=== PATIENT | female | born 1995 | race Caucasian/White ===

== ENCOUNTER 2018-02-05 03:14 | Emergency (ER) | payer OTHER ==
[~2018-02-05] VITALS: Ht 157.5 cm; Wt 79.4 kg
[2018-02-05 03:17] VITALS: BP 123/77
--- NOTE | 2018-02-05 03:18 | NUR ---
TO BED # 8 AMBULATORY, REPORT GIVEN TO YARY MARKS
--- NOTE | 2018-02-05 03:20 | NUR ---
PATIENT PRESENTS TO ED WITH RASHES THROUGHOUT BODY. PATIENT DENIES ANY NEW MEDICATIONS, DETERGENTS, FOOD AT THIS TIME. PATIENT DENIES ANY HIKING OR OUTSIDE ACTIVITIES AT THIS TIME. PATIENT STATES SHE IS POST December. PATIENT DENIES PAIN AT THIS TIME. PATIENT NOT IN DISTRESS AT THIS TIME. ER MD MADE AWARE OF PATIENT STATUS. WILL CONTINUE TO MONITOR.
--- NOTE | 2018-02-05 03:29 | NUR ---
Dr. Sarabia evaluating patient at bedside.
--- NOTE | 2018-02-05 03:42 | NUR ---
Patient discharged with v/s stable. Written and verbal after care instructions given and explained. Patient alert, oriented and verbalized understanding of instructions. Ambulatory with steady gait. All questions addressed prior to discharge. ID band removed. Patient advised to follow up with PMD. Rx of BENADRYL, PREDNISONE given. Patient educated on indication of medication including possible reaction and side effects. Opportunity to ask questions provided and answered.
[2018-02-05 03:43] VITALS: BP 123/77
== END 2018-02-05 03:42 | disposition home or self-care (01) ==
LOC: MED 03:14
DX: R21 Rash and other nonspecific skin eruption (principal); Z88.0 Allergy status to penicillin
CPT/HCPCS: 99283

== ENCOUNTER 2018-10-19 21:23 | Emergency (ER) | payer OTHER ==
[~2018-10-19] VITALS: Ht 157.5 cm; Wt 79.4 kg
[2018-10-19 21:27] VITALS: BP 110/56
--- NOTE | 2018-10-19 21:30 | NUR ---
TO LOBBY A/W BED, AMBULATORY
--- NOTE | 2018-10-19 22:25 | NUR ---
PT AMBULATED TO BED #4
--- NOTE | 2018-10-19 22:28 | NUR ---
PT CAME INTO ER WITH C/O WITH N/V/D AND COUGH X4 DAYS. PT STATED SHE HAS BEEN UNABLE TO TAKE MEDICATION DUE BEING ALLERGIC TO TYLENOL. PT HAS A RQASH ALL OVER BODY DUE TO ACCIDENTLY TAKING TYLENOL EITH THE COUGH MEDICATION. PT HAS SOME CONGESTION AND COPUGH IS PRESENT. PT IS A/OX4. ER MD MADE AWARE OF STATUS. SAFETY MEASURES ARE IMPLEMENTED AND BED RAILS UP X 1. PT PAIN LEVEL IS 6/10 AT THIS TIME.
--- NOTE | 2018-10-19 23:01 | NUR ---
X-Ray at bedside.
[2018-10-19] MEDS ORDERED: AZITHROMYCIN 250 MG TAB PO ONE (23:15)
--- NOTE | 2018-10-19 23:55 | NUR ---
Aminata faulkner in [facility] - 10/19/18 at [address] Warren evaluating patient at bedside.
[2018-10-20 00:10] VITALS: BP 110/56
--- NOTE | 2018-10-20 00:10 | NUR ---
Patient discharged with v/s stable. Written and verbal after care instructions given and explained. Patient alert, oriented and verbalized understanding of instructions. Ambulatory with steady gait. All questions addressed prior to discharge. ID band removed. Patient advised to follow up with PMD. Rx of PROMETHAZINE/DEXTROMETHORPHINE WAS given. Patient educated on indication of medication including possible reaction and side effects. Opportunity to ask questions provided and answered.
== END 2018-10-20 00:10 | disposition home or self-care (01) ==
LOC: MED 21:23
DX: J18.9 Pneumonia, unspecified organism (principal); Z88.0 Allergy status to penicillin
CPT/HCPCS: 71045; 99283; Q0092

== ENCOUNTER 2018-10-29 00:45 | Emergency (ER) | payer OTHER ==
[~2018-10-29] VITALS: Ht 157.5 cm; Wt 79.4 kg
[2018-10-29 00:56] VITALS: BP 105/64
--- NOTE | 2018-10-29 00:56 | NUR ---
TO BED # 06 AMBULATORY
--- NOTE | 2018-10-29 01:00 | NUR ---
BIB SELF C/O COUGH WITH RIB PAIN X 1 WEEK. DENIES FEVER, NVD. REPORTS THAT HER THROAT FEELS "SCRATCHY AND ITCHY".
--- NOTE | 2018-10-29 01:04 | NUR ---
Dr. Warren evaluating patient at bedside.
--- NOTE | 2018-10-29 01:20 | NUR ---
X-RAY AT BEDSIDE.
[2018-10-29] MEDS ORDERED: IBUPROFEN 800 MG TAB PO ONE (01:45)
[2018-10-29 02:04] VITALS: BP 105/64
--- NOTE | 2018-10-29 02:04 | NUR ---
Patient discharged with v/s stable. Written and verbal after care instructions given and explained. Patient alert, oriented and verbalized understanding of instructions. Ambulatory with steady gait. All questions addressed prior to discharge. ID band removed. Patient advised to follow up with PMD. Rx of motrin, promethazine given. Patient educated on indication of medication including possible reaction and side effects. Opportunity to ask questions provided and answered.
== END 2018-10-29 02:04 | disposition home or self-care (01) ==
LOC: MED 00:45
DX: R07.89 Other chest pain (principal); R05 Cough; Z88.0 Allergy status to penicillin
CPT/HCPCS: 71045; 99283; Q0092

== ENCOUNTER 2019-05-04 20:46 | Emergency (ER) | payer OTHER ==
[~2019-05-04] VITALS: Ht 157.5 cm; Wt 81.2 kg
[2019-05-04 21:00] VITALS: BP 135/70
--- NOTE | 2019-05-04 21:00 | NUR ---
TO LOBBY A/W BED AMBULATORY
--- NOTE | 2019-05-04 23:14 | NUR ---
PT AMBULATED TO BED 7
--- NOTE | 2019-05-04 23:15 | NUR ---
PT CAME IN TO ER WITH C/O PAIN TO THE RIGHT SHOULDWER X 2 DAYS. PT STATED THAT SHE SLIPED AND FELL AND INJURED HER SHOULDER. PT STATED THAT THE SITE IS SORE. PT IS ABLE TO PERFORM ROM. PT IS A/OX4. PT PAIN LEVEL IS 8/10 AT THIS TIME. ER MD MADE AWARE OF STATUS, SAFETY MEASURES IMPLEMENTED. CONTINUE TO MONITOR, FAMILY AT BED SIDE.
[2019-05-04] MEDS ORDERED: KETOROLAC 30 MG/ML VIAL IM ONE (23:55)
[2019-05-05 00:33] VITALS: BP 109/64
--- NOTE | 2019-05-05 00:33 | NUR ---
Patient discharged with v/s stable. Written and verbal after care instructions given and explained. Patient alert, oriented and verbalized understanding of instructions. Ambulatory with steady gait. All questions addressed prior to discharge. ID band removed. Patient advised to follow up with PMD. Rx of NAPROSYN WAS given. Patient educated on indication of medication including possible reaction and side effects. Opportunity to ask questions provided and answered.
== END 2019-05-05 00:33 | disposition home or self-care (01) ==
LOC: MED 20:46
DX: S43.401A Unspecified sprain of right shoulder joint, initial encounter (principal); Z88.0 Allergy status to penicillin; W01.0XXA Fall on same level from slipping, tripping and stumbling without subsequent striking against object, initial encounter; Y93.89 Activity, other specified; Y92.89 Other specified places as the place of occurrence of the external cause; Y99.8 Other external cause status
CPT/HCPCS: 73030; 96372; 99283; J1885

== ENCOUNTER 2020-02-11 09:23 | Emergency (ER) | payer MEDICAID, OTHER ==
[~2020-02-11] VITALS: Ht 157.5 cm; Wt 81.6 kg
[2020-02-11 09:34] VITALS: BP 142/77
[2020-02-11] MEDS ORDERED: KETOROLAC 30 MG/ML VIAL IM ONE (09:50)
--- NOTE | 2020-02-11 09:50 | NUR ---
c;o persistant right sided b0dy pain mechanical fall x >2 wks ago no discoloration no swelling noted
--- NOTE | 2020-02-11 10:05 | NUR ---
pt to x-ray via wc
[2020-02-11 11:36] VITALS: BP 131/75
--- NOTE | 2020-02-11 11:37 | NUR ---
Patient discharged with v/s stable. Written and verbal after care instructions given and explained. Patient alert, oriented and verbalized understanding of instructions. Ambulatory with steady gait. All questions addressed prior to discharge. ID band removed. Patient advised to follow up with PMD. Rx of naproxyn given. Patient educated on indication of medication including possible reaction and side effects. Opportunity to ask questions provided and answered.
== END 2020-02-11 11:35 | disposition home or self-care (01) ==
LOC: MED 09:23
DX: M79.10 Myalgia, unspecified site (principal); G57.00 Lesion of sciatic nerve, unspecified lower limb; Z88.0 Allergy status to penicillin
CPT/HCPCS: 71045; 73521; 96372; 99284; J1885

== ENCOUNTER 2020-03-04 22:01 | Emergency (ER) | payer MEDICAID ==
[~2020-03-04] VITALS: Ht 157.5 cm; Wt 81.6 kg
[2020-03-04 22:06] VITALS: BP 138/79
--- NOTE | 2020-03-04 22:24 | NUR ---
24 Y/ FEMALE C/O COUGH AND NASAL CONGESTION FOR ABOUT 2 WEEKS. NO FEVER AND NO N/V/D. PT STATES SHE TOOK CEPHELAXIN AND STARTED HAVING RASHES. DENIES PAIN. PMH: PNA ALLERGIES: TYLENOL, PENICILLIN
--- NOTE | 2020-03-04 23:01 | NUR ---
ERMD AT BEDSIDE EVALUATING PT
--- NOTE | 2020-03-04 23:25 | NUR ---
XRAY AT BEDSIDE
[2020-03-05 00:35] VITALS: BP 138/79
--- NOTE | 2020-03-05 00:35 | NUR ---
Patient discharged with v/s stable. Written and verbal after care instructions given and explained. Patient verbalized understanding. Ambulatory with steady gait. ID Band Removed. All questions addressed prior to discharge. Advised to follow up with PMD.
== END 2020-03-05 00:35 | disposition home or self-care (01) ==
LOC: MED 22:01
DX: J06.9 Acute upper respiratory infection, unspecified (principal); Z20.828 Contact with and (suspected) exposure to other viral communicable diseases; R07.89 Other chest pain; Z88.0 Allergy status to penicillin; Z88.6 Allergy status to analgesic agent
CPT/HCPCS: 71045; 93005; 99283; Q0092

== ENCOUNTER 2020-06-06 05:55 | Emergency (ER) | payer MEDICAID ==
[~2020-06-06] VITALS: Ht 157.5 cm; Wt 83.5 kg
[2020-06-06 06:05] VITALS: BP 95/66
--- NOTE | 2020-06-06 06:17 | NUR ---
PATIENT PRESENTS TO ED WITH C/O "MY KIDNEYS ARE HURTING X 2 DAYS. . PT STATES PAINFUL URINATION. DENIES N/V/D; SKIN IS PINK/WARM/DRY; AAOX4 WITH EVEN AND STEADY GAIT; LUNGS CLEAR BL; HR EVEN AND REGULAR; PT DENIES ANY FEVER, CP, SOB, OR COUGH AT THIS TIME; PATIENT STATES PAIN OF 10/10 AT THIS TIME; VSS. ER MD MADE AWARE OF PT STATUS.
[2020-06-06] MEDS ORDERED: cefTRIAXone 1,000 MG in LIDOCAINE MPF 1% 2.1 ML IM ONE (06:20)
[2020-06-06] MEDS ORDERED: KETOROLAC 30 MG/ML VIAL IM ONE (06:20)
[2020-06-06] MEDS ORDERED: cefTRIAXone 1,000 MG VIAL ONE (06:28)
[2020-06-06] MEDS ORDERED: LIDOCAINE MPF 1% 5 ML ONE (06:29)
[2020-06-06 08:12] VITALS: BP 102/65
--- NOTE | 2020-06-06 08:14 | NUR ---
Patient discharged with v/s stable. Written and verbal after care instructions given and explained. Patient alert, oriented and verbalized understanding of instructions. Ambulatory with steady gait. All questions addressed prior to discharge. ID band removed. Patient advised to follow up with PMD. Rx of Ciprofloxacin 500mg given. Patient educated on indication of medication including possible reaction and side effects. Opportunity to ask questions provided and answered.
[2020-06-06 08:40] LABS: APPEARANCE,URINE CLOUDY (CLEAR); BILIRUBIN,URINE NEGATIVE (NEGATIVE); BLOOD, URINE 2+ (NEGATIVE); COLOR,URINE ORANGE (YELLOW); LEUKOCYTE ESTERASE ,URINE 3+ (NEGATIVE); NITRITE, URINE POSITIVE (NEGATIVE); UGLUCOSE TRACE (NEGATIVE)
[2020-06-06 09:05] LABS: RBC,URINE 11-20 (MOD) /HPF (0-5); WBC,URINE 60-80 /HPF (0-5)
== END 2020-06-06 08:14 | disposition home or self-care (01) ==
LOC: MED 05:55
DX: N39.0 Urinary tract infection, site not specified (principal); R30.0 Dysuria; Z88.0 Allergy status to penicillin; Z88.6 Allergy status to analgesic agent
CPT/HCPCS: 81001; 81025; 87086; 96372; 99284; J0696; J1885; J2001

== ENCOUNTER 2020-09-24 17:33 | Emergency (ER) | payer MEDICAID ==
[~2020-09-24] VITALS: Ht 160 cm; Wt 76.7 kg
--- NOTE | 2020-09-24 17:55 | NUR ---
Pt in ER room 3 with pt (2y/o daughter).
[2020-09-24 17:59] VITALS: BP 124/67
--- NOTE | 2020-09-24 18:05 | NUR ---
25 Y/O FEMALE C/O SORE THROAT X3DAYS. PT STATES DAUGHTER HAS HAD SUBJECTIVE FEVER, +N/V/D X3DAYS AND SHE FEELS LIKE SHE IS "CATCHING SOMETHING FROM HER". PT DENIES FEVER/CHILLS, DENIES SOB, DENIES N/V/D. DENIES PMH ALLERGIES: PCN, ACETAMINOPHEN
--- NOTE | 2020-09-24 18:20 | NUR ---
Collected JACKSON colbert, influenza A&B, gave to clinical lab clerk
[2020-09-24] MEDS ORDERED: IBUP-1842 PO (18:41)
[2020-09-24 19:31] VITALS: BP 124/67
--- NOTE | 2020-09-24 19:31 | NUR ---
Patient discharged with v/s stable. Written and verbal after care instructions given and explained. Patient alert, oriented and verbalized understanding of instructions. Ambulatory with steady gait. All questions addressed prior to discharge. ID band removed. Patient advised to follow up with PMD. Rx of IBUPROFEN 400MG Q6H FOR PAIN/FEVER given. Patient educated on indication of medication including possible reaction and side effects. Opportunity to ask questions provided and answered.
== END 2020-09-24 19:31 | disposition home or self-care (01) ==
LOC: MED 17:33
DX: J02.9 Acute pharyngitis, unspecified (principal); Z20.822 Contact with and (suspected) exposure to COVID-19; Z88.0 Allergy status to penicillin; Z88.6 Allergy status to analgesic agent; Z79.899 Other long term (current) drug therapy
CPT/HCPCS: 87804; 99283

== ENCOUNTER 2021-01-14 19:11 | Emergency (ER) | payer MEDICAID ==
[~2021-01-14] VITALS: Ht 160 cm; Wt 83.9 kg
[~2021-01-14 19:11] MED LIST: IBUP-1842 PO
[2021-01-14 19:39] VITALS: BP 118/82
[2021-01-14] MEDS ORDERED: ONDANSETRON 4 MG/2 ML VIAL IVP ONE (20:35)
[2021-01-14] MEDS ORDERED: NACL 0.9% 1,000 ML IV ONE (20:35)
--- NOTE | 2021-01-14 21:13 | NUR ---
CALLED PATIENT FROM THE LOBBY-- NO ANSWER
--- NOTE | 2021-01-14 21:20 | NUR ---
PATIENT RETURNED TO LOBBY FROM US VIA .
[2021-01-14 21:32] LABS: APPEARANCE,URINE HAZY (CLEAR); BILIRUBIN,URINE NEGATIVE (NEGATIVE); BLOOD, URINE TRACE-I (NEGATIVE); LEUKOCYTE ESTERASE ,URINE 3+ (NEGATIVE); NITRITE, URINE NEGATIVE (NEGATIVE); UGLUCOSE NEGATIVE (NEGATIVE)
[2021-01-14 21:39] LABS: COLOR,URINE YELLOW (YELLOW)
[2021-01-14 21:58] LABS: RBC,URINE 0-5 /HPF (0-5)
--- NOTE | 2021-01-14 22:00 | NUR ---
PATIENT PRESENTS TO ED WITH C/O A/P . PT STATES SHE IS ABOUT 6 WEEKS . DENIES N/V/D; SKIN IS PINK/WARM/DRY; AAOX4 WITH EVEN AND STEADY GAIT; LUNGS CLEAR BL; HR EVEN AND REGULAR; PT DENIES ANY FEVER, CP, SOB, OR COUGH AT THIS TIME; VSS; PATIENT POSITIONED FOR COMFORT; HOB ELEVATED; BEDRAILS UP X2; BED DOWN. ER MD MADE AWARE OF PT STATUS.
[2021-01-14 22:22] LABS: BASOPHILS % (AUTO) 0.6 % (0.0-2.0); EOSINOPHILS # (AUTO) 0.1 K/uL (0-0.4); HEMATOCRIT 37.7 % (36-48); HEMOGLOBIN 12.7 g/dL (12.0-16.0); LYMPHOCYTES # (AUTO) 2.4 K/uL (2.5-16.5); LYMPHOCYTES % (AUTO) 26.7 % (20.5-51.1); MEAN CORPUSCULAR HEMOGLOBIN 30 pg (27-31); MEAN CORPUSCULAR HGB CONC 34 g/dL (33-37); MEAN CORPUSCULAR VOLUME 89.9 fL (80-94); MONOCYTES # (AUTO) 0.5 K/uL (0.8-1.0); MONOCYTES % (AUTO) 5.8 % (1.7-9.3); NEUTROPHILS # (AUTO) 5.9 K/uL (1.8-7.7); NEUTROPHILS % (AUTO) 65.9 % (42.2-75.2); PLATELET COUNT (AUTO) 348 K/uL (140-450); RED BLOOD CELL COUNT(AUTO) 4.19 MIL/uL (4.20-5.40); RED CELL DISTRIBUTION WIDTH 12.8 % (11.6-13.7); WHITE BLOOD COUNT (AUTO) 8.9 K/uL (4.8-10.8)
[2021-01-14 22:30] LABS: ALBUMIN 3.2 g/dL (3.4-5.0); ANION GAP 13.6 (8-16); CARBON DIOXIDE 22.7 mmol/L (21-32); CREATININE 0.7 mg/dL (0.6-1.3); POTASSIUM 3.3 mmol/L (3.5-5.1); TOTAL BILIRUBIN 0.1 mg/dL (0.0-1.0)
[2021-01-14] MEDS ORDERED: ONDANSETRON 4 MG/2 ML VIAL ONE (23:00)
[2021-01-14] MEDS ORDERED: cephALEXin 500 MG CAP PO ONE (23:10)
[2021-01-14] MEDS ORDERED: cephALEXin 500 MG CAP ONE (23:12)
[2021-01-14] MEDS ORDERED: CEPH-588 PO (23:14)
== END 2021-01-15 00:04 | disposition home or self-care (01) ==
LOC: MED 19:11
DX: O23.41 Unspecified infection of urinary tract in pregnancy, first trimester (principal); O26.891 Other specified pregnancy related conditions, first trimester; R10.32 Left lower quadrant pain; R19.7 Diarrhea, unspecified; Z3A.01 Less than 8 weeks gestation of pregnancy; Z88.0 Allergy status to penicillin; Z88.6 Allergy status to analgesic agent; Z79.899 Other long term (current) drug therapy
CPT/HCPCS: 36415; 76801; 80053; 81001; 84702; 85025; 87086; 96361; 96374; 99284; J2405; J7030

== ENCOUNTER 2021-06-23 00:09 | Emergency (ER) | payer MEDICAID ==
[~2021-06-23] VITALS: Ht 157.5 cm; Wt 95.3 kg
[~2021-06-23 00:09] MED LIST changes: +CEPH-588 PO
[2021-06-23 00:32] VITALS: BP 117/79
--- NOTE | 2021-06-23 00:37 | NUR ---
patient to lobby
--- NOTE | 2021-06-23 02:15 | NUR ---
SWABS COLLECTED AND SENT TO LAB
[2021-06-23] MEDS ORDERED: TAM75 PO (04:00)
[2021-06-23 04:12] VITALS: BP 120/68
--- NOTE | 2021-06-23 04:12 | NUR ---
SEEN BY LENY NO NURSING INTERVENTION DONE FOR THIS PATIENT.
--- NOTE | 2021-06-23 04:12 | NUR ---
Patient discharged with v/s stable. Written and verbal after care instructions given and explained. Patient alert, oriented and verbalized understanding of instructions. Ambulatory with steady gait. All questions addressed prior to discharge. ID band removed. Patient advised to follow up with PMD. Rx of tamiflu given. Patient educated on indication of medication including possible reaction and side effects. Opportunity to ask questions provided and answered.
== END 2021-06-23 04:12 | disposition home or self-care (01) ==
LOC: MED 00:09
DX: J10.1 Influenza due to other identified influenza virus with other respiratory manifestations (principal); Z20.822 Contact with and (suspected) exposure to COVID-19
CPT/HCPCS: 71045; 87081; 87804; 99284